=== PATIENT | male | born 1965 | race Caucasian/White ===

== ENCOUNTER 2019-06-30 06:56 | Emergency (ER) | payer BC ==
--- NOTE | 2019-06-30 07:39 | CT ---
CT BRAIN NONCONTRAST: DATE: 06/30/2019 HISTORY: 54-year-old male with altered mental status FINDINGS: There is no evidence of acute intra-axial or extra-axial hemorrhage. There is no midline shift or any other mass effect. There is no extra-axial fluid collection. There is no evidence of obstructive hydrocephalus. Calvarium is intact. IMPRESSION: No acute intracranial findings.
--- NOTE | 2019-06-30 07:40 | RAD ---
RADIOGRAPH CHEST 1 VIEW: DATE: 06/30/2019 TIME: 7:22 AM HISTORY: 54-year-old male with altered mental status. Concern for aspiration. COMPARISON: none FINDINGS: Shallow inspiration. Study limited by body habitus. Mild pulmonary venous engorgement. Magnification of cardiac shadow. No consolidation or pulmonary alveolar edema. No pneumothorax. IMPRESSION: No consolidation identified.
[2019-06-30] MEDS ORDERED: Aspirin 325 MG TAB ONE (07:45)
[2019-06-30 07:47] LABS: #Basophils 0.1 thou/uL (0.0-0.2); #Eosinphils 0.1 thou/uL (0.0-0.7); #Lymphocytes 1.6 thou/uL (1.20-3.40); #Monocytes 0.7 thou/uL (0.11-0.59); #Neutrophils 6.6 thou/uL (1.40-6.50); %Basophils 1.1 % (0.0-1.0); %Eosinophils 1.6 % (0.0-10.0); %Lymphocytes 17.9 % (21.0-51.0); %Monocytes 7.7 % (0.0-10.0); %Neutrophils 71.7 % (42.0-75.0); Hemoglobin 15.5 g/dL (14.0-18.0); Mean Corpuscular HGB CONC 33.1 g/dL (32.0-36.0); Mean Corpuscular Hemoglobin 30.2 pg (27.0-31.0); Mean Corpuscular Volume 91.1 fL (78.0-98.0); Mean Platelet Volume 6.8 fL (7.4-10.4); Platelet Count 230 thou/uL (130-400); RBC Distribution Width 12.2 % (11.5-14.5); Red Blood Cell (RBC) Count 5.13 mill/uL (4.70-6.10); White Blood Cell (WBC) Count 9.2 thou/uL (4.8-10.8)
[2019-06-30 07:54] LABS: ALT (SGPT) 24 U/L (8-55); AST (SGOT) 16 U/L (5-34); Acetaminophen Less than 6.0 mcg/mL (10.0-30.0); Albumin 4.2 g/dL (3.5-5.0); Alcohol Less than 10 mg/dL (Less than 10); Alkaline Phosphatase 79 U/L (40-110); Anion Gap 14 mmol/L (10-20); BUN (Urea Nitrogen) 10 mg/dL (8.4-25.7); Bilirubin, Total 0.3 mg/dL (0.2-1.2); Calc. Creatinine Clearance 0 mL/min (70-130); Calcium 9.4 mg/dL (7.8-10.44); Carbon Dioxide 23 mmol/L (22-29); Chloride 105 mmol/L (98-107); Estimated GFR-MDRD Greater than 90; Glucose 126 mg/dL (70-105); Potassium 3.9 mmol/L (3.5-5.1); Salicylate Less than 8.0 mg/dL (15.0-30.0); Sodium 138 mmol/L (136-145)
[2019-06-30 08:09] LABS: Globulin 3.3 g/dL (2.4-3.5); Protein, Total 7.5 g/dL (6.0-8.3)
[2019-06-30 08:23] LABS: Bilirubin Negative (Negative); Blood, Urine Negative (Negative); Clarity Clear (Clear); Glucose, Urine (Dipstick) Negative (Negative); Leukocyte Negative (Negative); Nitrite Negative (Negative); Protein, Urine (Dipstick) Negative (Neg-Trace); Urobilinogen 0.2 mg/dL (Less than 2)
[2019-06-30 08:39] LABS: Amphetamine Not Detected (NotDetected); Barbiturates Screen Not Detected (NotDetected); Benzodiazepine Screen Not Detected (NotDetected); Cocaine Metabolite Screen Not Detected (NotDetected); Medtox Control Line Valid? VALID (VALID); Methadone Not Detected (NotDetected); Methamphetamine Not Detected (NotDetected); Opiate Screen Not Detected (NotDetected); Oxycodone Screen Not Detected (NotDetected); Phencyclidine (PCP) Not Detected (NotDetected); THC/Cannabinoid Screen Not Detected (NotDetected); Tricyclic Screen Not Detected (NotDetected)
== END 2019-06-30 08:48 | disposition short-term general hospital (02) ==
LOC: MADERS 06:56
DX: R42 Dizziness and giddiness (principal); J44.9 Chronic obstructive pulmonary disease, unspecified; F17.210 Nicotine dependence, cigarettes, uncomplicated; Z79.51 Long term (current) use of inhaled steroids
CPT/HCPCS: 70450; 71045; 80053; 80306; 80307; 81003; 83880; 84484; 85025; 93005; 94760

== ENCOUNTER 2019-07-03 12:58 | Emergency (ER) | payer BC | END 2019-07-03 13:50 | disposition home or self-care (01) | LOC: MADERS 12:58 | DX: R42 Dizziness and giddiness (principal); J44.9 Chronic obstructive pulmonary disease, unspecified; M19.90 Unspecified osteoarthritis, unspecified site; F17.220 Nicotine dependence, chewing tobacco, uncomplicated; F17.210 Nicotine dependence, cigarettes, uncomplicated; Z79.82 Long term (current) use of aspirin; Z79.51 Long term (current) use of inhaled steroids; Z71.6 Tobacco abuse counseling; Z79.899 Other long term (current) drug therapy | CPT/HCPCS: 99406 ==

== ENCOUNTER 2019-07-11 23:47 | Emergency (ER) | payer BC | END 2019-07-12 00:18 | disposition home or self-care (01) | LOC: MADERS 23:47 | DX: I10 Essential (primary) hypertension (principal); J44.9 Chronic obstructive pulmonary disease, unspecified; M19.90 Unspecified osteoarthritis, unspecified site; F17.220 Nicotine dependence, chewing tobacco, uncomplicated; Z79.82 Long term (current) use of aspirin; Z79.51 Long term (current) use of inhaled steroids; Z79.899 Other long term (current) drug therapy | CPT/HCPCS: 99283 ==

== ENCOUNTER 2020-05-29 11:07 | Outpatient (CLI) | payer BC ==
--- NOTE | 2020-05-29 11:32 | RAD ---
XR Chest Pa Lat STANDARD HISTORY: Chest pain COMPARISON: 06/30/2019 FINDINGS: The heart size is at upper limits of normal. The lungs are well expanded without focal area s of consolidation, pneumothorax or pleural effusions. IMPRESSION: No radiographic evidence of acute cardiopulmonary process.
== END 2020-05-29 11:08 | disposition home or self-care (01) ==
LOC: MADLAB 11:07
PROVIDERS: ATTEND Family Medicine
DX: R06.02 Shortness of breath (principal); R07.9 Chest pain, unspecified; M79.89 Other specified soft tissue disorders
CPT/HCPCS: 36415; 71046; 83880; 93005; 93010

== ENCOUNTER 2020-07-10 16:18 | Emergency (ER) | payer BC ==
[~2020-07-10 16:18] MED LIST: Iopamidol 370 76% 125 ML VIAL FS ONE; Sodium Chloride 0.9% 100 ML BAG ONE
[2020-07-10 17:19] LABS: #Basophils 0.1 thou/uL (0.0-0.2); #Eosinphils 0.2 thou/uL (0.0-0.7); #Lymphocytes 1.9 thou/uL (1.20-3.40); #Monocytes 0.8 thou/uL (0.11-0.59); #Neutrophils 6.3 thou/uL (1.40-6.50); %Basophils 1.2 % (0.0-1.0); %Eosinophils 2.5 % (0.0-10.0); %Lymphocytes 20.4 % (21.0-51.0); %Monocytes 8.4 % (0.0-10.0); %Neutrophils 67.4 % (42.0-75.0); Hemoglobin 16.1 g/dL (14.0-18.0); INR-International Normal Ratio 0.9; Mean Corpuscular HGB CONC 31.7 g/dL (32.0-36.0); Mean Corpuscular Hemoglobin 29.8 pg (27.0-31.0); Mean Platelet Volume 7.3 fL (7.4-10.4); PTT 29.9 sec (22.9-36.1); Platelet Count 230 thou/uL (130-400); Prothrombin Time 12.6 sec (12.0-14.7); RBC Distribution Width 12.4 % (11.5-14.5); Red Blood Cell (RBC) Count 5.39 mill/uL (4.70-6.10); White Blood Cell (WBC) Count 9.3 thou/uL (4.8-10.8)
[2020-07-10 17:20] LABS: ALT (SGPT) 51 U/L (8-55); AST (SGOT) 35 U/L (5-34); Albumin 4.5 g/dL (3.5-5.0); Alkaline Phosphatase 85 U/L (40-110); Anion Gap 15 mmol/L (10-20); BUN (Urea Nitrogen) 19 mg/dL (8.4-25.7); Calc. Creatinine Clearance 0 mL/min (70-130); Calcium 9.8 mg/dL (7.8-10.44); Carbon Dioxide 27 mmol/L (22-29); Chloride 104 mmol/L (98-107); Estimated GFR-MDRD 82; Globulin 3.4 g/dL (2.4-3.5); Glucose 115 mg/dL (70-105); Potassium 4.1 mmol/L (3.5-5.1); Protein, Total 7.9 g/dL (6.0-8.3); Sodium 142 mmol/L (136-145)
--- NOTE | 2020-07-10 17:31 | CT ---
Exam: Head CT without contrast HISTORY: Possible CVA. Acute dizziness. COMPARISON: 06/30/2019 FINDINGS: Hemorrhage: No intraparenchymal hemorrhage or extra-axial hematoma. Brain parenchyma: Cortical samuel-white matter differentiation is preserved. No mass effect or midline shift. Basilar cisterns are patent. Ventricular system: Ventricles and sulci are patent and symmetric. Calvarium: Intact. Sinuses and mastoid air cells: Small right maxillary sinus mucus retention cyst. IMPRESSION: No acute intracranial process.
--- NOTE | 2020-07-10 21:41 | CT ---
CTA HEAD: CTA NECK: 07/10/20 Axial tomograms were obtained through the head and neck following angio protocol with multiplanar rec onstructions and 3D postprocessing. INDICATIONS: Dizziness. Possible stroke/CVA. Comparison made to prior CTA head and neck dated 07/01/19. CTA HEAD: The intracranial internal carotid arteries are patent. Atherosclerotic calcifications seen in [place] portions of both ICAs appear similar to the prior exam. This produces mild supraclinoid stenosis i n both ICAs. Anterior cerebral arteries and middle cerebral arteries are patent and symmetric with no proximal claudy nosis or occlusion. Basilar artery is patent. Both posterior cerebral arteries are patent and symmetric. The superior cer ebellar arteries are identified and appear patent. The anterior inferior cerebellar arteries are jennifer tly visualized. PICA vessels are not well evaluated. IMPRESSION: Atherosclerotic changes in the cavernous and supraclinoid ICAs bilaterally, stable from prior exam. N o acute stenosis or occlusion in the proximal anterior cerebral, middle cerebral, posterior cerebral arteries. Posterior fossa vessels are poorly evaluated. If there is concern of posterior fossa infarct, further evaluation with MRI is recommended. CTA NECK: Origin of arch vessels unremarkable. The common carotid arteries appear patent and symmetric. There is atherosclerotic change involving both bulbs and both proximal ICAs. This was also noted on t he prior exam and there was evidence of significant stenosis involving the proximal right internal ca rotid artery. This has a similar appearance to the prior study. A catheter angiogram was recommended at that time to adequately assess the luminal stenosis given the dense calcification present. There h as been no significant interval change. The vertebral arteries appear patent and symmetric. IMPRESSION: Dense calcifications in both bulbs and proximal ICAs. There is evidence of hemodynamically significan t stenosis in the proximal right internal carotid artery which does not appear significantly changed from 07/01/19. Catheter angiogram is again recommended to adequately assess the lumen. The dense calc ification prohibits adequate assessment by CT. POS: [facility]
== END 2020-07-10 17:52 | disposition left against medical advice (07) ==
LOC: MADERS 16:18
DX: I10 Essential (primary) hypertension (principal); E78.5 Hyperlipidemia, unspecified; Z86.73 Personal history of transient ischemic attack (TIA), and cerebral infarction without residual deficits; J44.9 Chronic obstructive pulmonary disease, unspecified; G47.33 Obstructive sleep apnea (adult) (pediatric); F17.210 Nicotine dependence, cigarettes, uncomplicated; Z79.82 Long term (current) use of aspirin; Z79.51 Long term (current) use of inhaled steroids; Z79.899 Other long term (current) drug therapy
CPT/HCPCS: 36416; 70450; 70496; 70498; 80053; 84484; 85025; 85610; 85730; 93005; J3490; Q9967

== ENCOUNTER 2021-10-02 11:42 | Outpatient (CLI) | payer BC | END 2021-10-02 11:43 | disposition home or self-care (01) | LOC: MADLAB 11:42 → MADRAD 11:43 | PROVIDERS: ATTEND Family Medicine | DX: M54.50 Low back pain, unspecified (principal); R20.0 Anesthesia of skin; M47.816 Spondylosis without myelopathy or radiculopathy, lumbar region; M47.812 Spondylosis without myelopathy or radiculopathy, cervical region; I70.90 Unspecified atherosclerosis | CPT/HCPCS: 72040; 72100 ==

== ENCOUNTER 2022-06-04 15:38 | Outpatient (CLI) | payer MEDICARE | END 2022-06-04 15:39 | disposition home or self-care (01) | LOC: MADCT 15:38 | PROVIDERS: ATTEND Family Medicine | DX: R41.3 Other amnesia (principal) | CPT/HCPCS: 70450 ==